=== PATIENT | female | born 1985 | race Caucasian/White ===

== ENCOUNTER 2016-08-01 16:25 | Emergency (ER) | payer OTHER ==
[2016-08-01 17:01] LABS: HEMOGLOBIN 14.3 gm/dl (12.3-15.3); RED BLOOD COUNT 4.58 M/UL (4.00-5.10); WHITE BLOOD COUNT 8.7 K/UL (4.5-11.0)
[2016-08-01 17:24] LABS: BUN/CREATININE RATIO 6 (0-10)
== END 2016-08-01 17:55 | disposition home or self-care (01) ==
LOC: ER1 16:25
PROVIDERS: Emergency Medicine
DX: T63.001A Toxic effect of unspecified snake venom, accidental (unintentional), initial encounter (principal); F17.210 Nicotine dependence, cigarettes, uncomplicated; Z90.49 Acquired absence of other specified parts of digestive tract
CPT/HCPCS: 36415; 80053; 82550; 85025; 85610; 85730; 90471; 90714; 96374; 96375; 99284; J2270; J2405

== ENCOUNTER 2020-11-23 06:04 | Emergency (ER) | payer OTHER ==
[~2020-11-23 06:04] MED LIST: BACTRIM DS TAB1 EACH PO; KEFLEX500 MG PO
[2020-11-23 06:28] LABS: HEMOGLOBIN 15.4 gm/dl (12.3-15.3); RED BLOOD COUNT 4.81 M/UL (4.00-5.10); WHITE BLOOD COUNT 8.8 K/UL (4.5-11.0)
[2020-11-23 06:54] LABS: BUN/CREATININE RATIO 10 (0-10)
[2020-11-23] MEDS ORDERED: IBU800 MG PO (09:11)
== END 2020-11-23 09:40 | disposition home or self-care (01) ==
LOC: ER1 06:04
PROVIDERS: Nurse Practitioner
DX: R07.89 Other chest pain (principal); E80.6 Other disorders of bilirubin metabolism; Z90.49 Acquired absence of other specified parts of digestive tract; Z87.891 Personal history of nicotine dependence
CPT/HCPCS: 71045; 80053; 82550; 82553; 83735; 83874; 84484; 85025; 93005; 99285

== ENCOUNTER → 2020-11-25 20:08 | Emergency (ER) | payer OTHER ==
[~2020-11-25 20:08] MED LIST changes: +IBU800 MG PO
== END | disposition left against medical advice (07) ==
LOC: ER1 20:08
DX: Z53.21 Procedure and treatment not carried out due to patient leaving prior to being seen by health care provider (principal)

== ENCOUNTER 2021-03-08 19:30 | Emergency (ER) | payer OTHER | END 2021-03-08 23:15 | disposition home or self-care (01) | LOC: ER1 19:30 | DX: M79.661 Pain in right lower leg (principal) | CPT/HCPCS: 73502; 73552; 73562; 73590; 73610; 99283 ==